=== PATIENT | male | born 1980 ===

== ENCOUNTER 2024-09-24 21:09 | Emergency (ER) | payer OTHER ==
[~2024-09-24] VITALS: Ht 165.1 cm; Wt 68.0 kg
[2024-09-24] MEDS: ketOROlac 60 MG VIAL (30MG/ML) IM ONE (22:09)
[2024-09-24] MEDS: CYCLOBENZAPRINE HCL 10 MG TABLET PO ONE (22:09)
[2024-09-24] MEDS ORDERED: CYCL10TA16 PO (22:51)
[2024-09-24] MEDS ORDERED: IBUP-2070 PO (22:51)
[2024-09-24 23:13] VITALS: BP 112/52; PULSE 78; RESP 20; TEMP 98.8; O2SAT 98
== END 2024-09-24 23:19 | disposition home or self-care (01) ==
LOC: EDH 21:09
DX: M25.512 Pain in left shoulder (principal); M54.2 Cervicalgia; M62.838 Other muscle spasm; F20.9 Schizophrenia, unspecified; F31.9 Bipolar disorder, unspecified; V89.2XXA Person injured in unspecified motor-vehicle accident, traffic, initial encounter; Y93.89 Activity, other specified; Y92.488 Other paved roadways as the place of occurrence of the external cause; Y99.8 Other external cause status
CPT/HCPCS: 99283; 73000; 96372; J1885